=== PATIENT | male | born 1965 | race Hispanic/Latino ===

== ENCOUNTER 2021-12-25 07:19 | Observation (INO) | payer BC ==
[2021-12-24 15:38] LABS: Absolute Lymphocytes (CBC) 2.1 K/uL (0.7-4.9); Hematocrit 38.5 % (39.6-49.0); Lymphocytes % 30.7 % (15.3-44.8); MCV 89.4 fL (80-100); MPV 9.4 fL (7.6-11.3)
[2021-12-24 15:51] LABS: SARS-CoV-2 Antigen Rapid Res Negative (Negative)
[2021-12-24 16:01] LABS: Potassium 4.2 mmol/L (3.5-5.1)
[2021-12-25] MEDS ORDERED: CEFOXITIN SODIUM 1 GM/VIAL ONE (07:47)
[2021-12-25] MEDS ORDERED: Ringers Lactate 1,000 ML IV ONE (07:48)
[2021-12-25] MEDS ORDERED: CEFOXITIN SODIUM 2 GM/VIAL ONE (07:51)
[2021-12-25] MEDS ORDERED: BUPIVACAINE 0.25% PF 30 ML VIAL ONE ×2 (08:21→09:15)
[2021-12-25] MEDS ORDERED: MIDAZOLAM HCL 2 MG/2 ML INJ ONE (09:23)
[2021-12-25] MEDS ORDERED: propofoL 200 MG/20 ML VIAL IV ONE (09:23)
[2021-12-25] MEDS ORDERED: ROCURONIUM 50 MG/5 ML VIAL IV ONE (09:24)
[2021-12-25] MEDS ORDERED: ONDANSETRON 4 MG/2 ML VIAL ONE (09:25)
[2021-12-25] MEDS ORDERED: GLYCOPYRROLATE 0.2 MG/ML SYR ONE (09:26)
[2021-12-25] MEDS ORDERED: NEOSTIGMINE 1 MG/ML -10 ML VIAL ONE (09:26)
[2021-12-25] MEDS ORDERED: FENTANYL CITR 100 MCG/2 ML ONE ×2 (09:27→10:31)
[2021-12-25] MEDS ORDERED: LIDOCAINE 1% MPF 5 ML VIAL ONE (09:29)
[2021-12-25] MEDS ORDERED: ONDANSETRON 4 MG/2 ML VIAL IV PRN (11:28)
[2021-12-25] MEDS ORDERED: HYDROCODONE/APAP 7.5/325 MG TAB PO PRN (11:28)
--- NOTE | 2021-12-25 11:28 | P.OP ---
Preoperative diagnosis: Cholecystitis with choledocholithiasis Postoperative diagnosis: Cholecystitis with choledocholithiasis Primary procedure: Attempted Laparoscopic Cholecystectomy Secondary procedure: Diagnostic Laparoscopy Anesthesia: GETA + Local Estimated blood loss: <30cc Specimen: none Findings: severe adhesions / inflammation to hepatic fossa Complications: None Drain(s): JAK drain (10mm Flat) Transferred to: Recovery Room Condition: Good
[2021-12-25] MEDS: INSULIN -REGULAR HUMAN 50 UNIT/0.5 ML ML SQ SCH ×3 (11:30→21:00)
[2021-12-25] MEDS: HYDROMORPHONE HCL 1 MG/ML INJ IV PRN ×4 (11:50→12:30)
[2021-12-25] MEDS: Ringers Lactate 1,000 ML IV SCH ×2 (12:00→22:00)
--- OUTSIDE RECORDS SUMMARY | 2021-12-25 12:21 | XMS REPORT | Continuity of Care Document ---
:1965 Author Organization [facility] t Address [address] [place] [address] Care Team Providers Name Role Phone Titus Cyr Primary Care Physician SILVIA VANCE Attending Clinician Unavailable Silvia Vance MD Attending Clinician Pob, [facility] Main Attending Clinician Unavailable Doctor Unassigned, [place] Attending Clinician Unavailable Only, Ang Db Test Attending Clinician Unavailable Denisse Jo Attending Clinician DENISSE CUTLER Attending Clinician Unavailable RAFI MATTHEWS Attending Clinician Unavailable Payers Payer Name Policy Type Policy Number Effective Date Expiration Date S saulo [facility] [id number] 2021 00:00:00 Problems This patient has no known problems. Allergies, Adverse Reactions, Alerts Allergy Allergy Status Severity Reaction(s) Onset Inactive Treating Comm ents Source Name Type Date Date Clinician NO KNOWN Drug Active Univers ALLERGIE Class ity of [facility] Social History Social Habit Start Date Stop Date Quantity Comments Source Exposure to 2021-11-24 2021-12-04 Not sure [facility] SARS-CoV-2 (event) 00:00:00 10:14:00 [facility] Sex Assigned At [birth year] [facility] 00:00:00 00:00:00 Medical Branch Smoking Status Start Date Stop Date Source Tobacco smoking consumption [facility] Branch Medications Ordered Filled Start Stop Current Ordering Indication Dosage Frequency Signature Comments Components Source Medication Medication Date Date Medication? Clinician (SIG) Name Name IBUPROFEN Yes w/meals Unive rs 600 MG ORAL 4-26 TID ity of TAB 00:58: [address] IBUPROFEN Yes w/meals Unive rs 600 MG ORAL 4-26 TID ity of TAB 00:58: [address] IBUPROFEN Yes w/meals Unive rs 600 MG ORAL 4-26 TID ity of TAB 00:58: [address] IBUPROFEN Yes w/meals Unive rs 600 MG ORAL 4-26 TID ity of TAB 00:58: [address] Immunizations Ordered Filled Immunization Date Status Comments Sourc e Immunization Name Name SARS-COV-2 COVID-19 2020-07-20 Completed Unive rsity of PFIZER VACCINE 00:00:00 [facility] SARS-COV-2 COVID-19 2020-07-20 Completed Unive rsity of PFIZER VACCINE 00:00:00 [facility] SARS-COV-2 COVID-19 2020-07-20 Completed Unive rsity of PFIZER VACCINE 00:00:00 [facility] SARS-COV-2 COVID-19 2020-07-20 Completed Unive rsity of PFIZER VACCINE 00:00:00 [facility] SARS-COV-2 COVID-19 2020-06-29 Completed Unive rsity of PFIZER VACCINE 00:00:00 [facility] SARS-COV-2 COVID-19 2020-06-29 Completed Unive rsity of PFIZER VACCINE 00:00:00 [facility] SARS-COV-2 COVID-19 2020-06-29 Completed Unive rsity of PFIZER VACCINE 00:00:00 [facility] SARS-COV-2 COVID-19 2020-06-29 Completed Unive rsity of PFIZER VACCINE 00:00:00 [facility] Procedures Procedure Date / Time Performed Performing Clinician Sourc e US ABDOMEN LIMITED 2021-12-11 13:46:00 Silvia Vance [facility] ASSIGNMENT OF BENEFITS 2021-12-11 13:06:55 Doctor Unassigned, No [facility] Encounters Start End Encounter Admission Attending Care Care Encounter Source Date/Time Date/Time Type Type Clinicians Facility Department ID 2021-12-11 2021-12-11 Outpatient R PINKY [facility] [id number] Univers 08:08:30 23:59:00 SILVIA ity [facility] 2021-12-11 2021-12-11 [facility] [id number] Univers 08:00:00 23:59:00 Encounter Silvia MOYER [id number] ity [facility] [id number] [id number] [facility] [address] 2021-12-11 2021-12-11 Butadiene Converter Operator Crystal Atkinson Lab Main [facility] [id number] Univers 09:30:00 09:45:00 [id number] [id number] [id number] Md dical [facility] [address] BUILDING 2021-12-11 2021-12-11 Outpatient R MARTAJAZMÍNPARISH [facility] [id number] Univers 09:30:00 09:30:00 SILVIA [id number] [facility] 2021-12-11 2021-12-11 Orders Doctor SNIDER [id number] Univers 00:00:00 00:00:00 Only Unassigned, ABDOULAYE [id number] ity of [place] [facility] [id number] Branden as [id number] [facility] [address] 2021-04-10 2021-04-10 Outpatient R [facility] [id number] Univers 16:45:00 16:45:00 [id number] ity [facility] 2021-04-10 2021-04-10 Laboratory Only, Ang Db Test [facility] [id number] Univers 16:45:00 16:45:00 Only [place]inf[place], Denisse [facility] [id number] [facility] [id number] Branden as GAIL?BLEA [phone] Md chapin [address] MEDICAL OFFICE BUILDING 2021-04-10 2021-04-10 Outpatient R OMAYRA [facility] [id number] Univers 16:45:00 16:41:14 DENISSE [facility] 2020-07-20 2020-07-20 Outpatient R CASSIE [facility] [id number] Univers 08:35:00 08:45:24 RAFI [facility] 2020-06-29 2020-06-29 [facility] [id number] Univers 09:00:00 09:00:00 RAFI [facility] 2020-03-27 2020-03-27 Outpatient R [facility] [id number] Univers 08:00:00 08:00:00 [facility] Results This patient has no known results.
[2021-12-25] MEDS ORDERED: dexAMETHasone 4 MG/ML VIAL ONE (12:23)
[2021-12-25 12:29] VITALS: O2SAT 96
[2021-12-25] MEDS ORDERED: Levofloxacin 750mg IV 750 MG/150 ML BAG IV SCH (13:00)
--- NOTE | 2021-12-25 13:37 | EKG ---
Test Date: 2021-12-24 Test Time: 14:56:05 Bar Roller: JENARO MEASUREMENT RESULTS: Intervals: Rate: 50 DC: 154 QRSD: 94 QT: 446 QTc: 406 Lorenzo: P: 53 DC: 154 QRS: 34 T: 24 INTERPRETIVE STATEMENTS: Sinus bradycardia Otherwise normal ECG Compared to ECG 12/24/2021 14:55:34 Fusion complex(es) no longer present ST (T wave) deviation no longer present Myocardial infarct finding no longer present Electronically Signed On 12-25-21 13:34:58 CDT by Fredo Abdi
[2021-12-25] MEDS: METRONIDAZOLE 500mg IVPB 500 MG/100 ML BAG IV SCH ×2 (14:51→20:18)
[2021-12-25 16:03] VITALS: BMI 32.5
[2021-12-26] MEDS: METRONIDAZOLE 500mg IVPB 500 MG/100 ML BAG IV SCH (03:59)
--- NOTE | 2021-12-26 05:07 | OP ---
Date of Procedure: 12/25/2021 Surgeon: Severo Peraza MD, Indications: The patient is a 56-year-old gentleman, known to me as an outpatient, who presented wit h right upper quadrant abdominal pain and signs and symptoms of acute calculous cholecystitis. He wa s sent for imaging, which confirmed the fact that he had evidence of choledocholithiasis with multipl e stones in his common bile duct including a single dependent stone up to 1.1 cm. I sent him to Dr. Camilo who ultimately performed ERCP in the preoperative phase as the patient was relatively asymptomat ic as an outpatient with minimal changes in his transaminases and liver function panel and no acute s ymptoms upon this presentation in my clinic. He was seen by Dr. Camilo, had the ERCP as described and ultimately had a sphincterotomy and stent placed. 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 Camilo as he discussed the case with me on the phone. The re cords were not available immediately for my review, but I discussed the case personally with Dr. Camilo who informed me that he was able to place a stent and decompress the system. He states the gallblad modesta did not visualize on his ERCP, but he felt that there was good placement of the stent at the time of the procedure. As such, Dr. Camilo recommended we can proceed with laparoscopic cholecystectomy. As such, I discussed the case with the patient in my clinic and stated that at time he picked up his packet that the risks benefits alternatives of the above-stated procedure included, but not limited t o bleeding, infection, damage to surrounding tissue, need for further operation procedures, injury to bile ducts and intestines, blood clots, stroke, heart attacks and anesthesia related complications a nd other unforeseen complications. We therefore decided to proceed with surgery as discussed. Preoperative Diagnosis: Cholecystitis with history of choledocholithiasis. Postoperative Diagnosis: Cholecystitis with history of choledocholithiasis. Procedures Performed: 1.Attempted laparoscopic cholecystectomy-unsuccessful. 2.Diagnostic laparoscopy. Anesthesia: General endotracheal plus local with 0.25% Marcaine. Estimated Blood Loss: Less than 30 cc. Specimen: None. Findings: The patient had severe intraabdominal adhesions from the omentum to the anterior abdominal wall as well as complete encasement of the gallbladder making visualization and protection of the ga llbladder quite challenging despite using indocyanine green cholangiography in the preoperative perio d. Complications: None. Drains: A 10 mm flat JAK drain was placed in the subhepatic space. Disposition: Patient was transferred to recovery room in good condition. Procedure In Detail: After informed consent was obtained as described above, the patient was prepped and draped in the usual sterile fashion. After adequate anesthesia was achieved, I anesthetized the area superior to the umbilicus. I made an incision and a 5 mm 0-degree optical trocar was introduce d in the abdomen without evidence of any complication. Insufflation was obtained to 15 mmHg at this time. There was no injury to vital structures upon entry into the abdomen. There was significant am ount of inflammatory changes with omental attachments to the anterior abdominal wall. At this point, there was a surprisingly large amount of adhesions between the omentum and the anterior abdominal wa ll from the midportion, intracolonic portion of the omentum to the anterior abdominal wall. Given th e patient's stated no abdominal surgical history, this was quite surprising as there was a significan t amount of intraabdominal scarring for his having a virgin abdomen at this point. I therefore place d 3 additional trocars, 1 in the epigastrium, 1 in the right upper quadrant, and 1 in the right mid a bdomen. All of these were 5 mm trocars placed under direct visualization without incident or complic ation. I then upsized the umbilical trocar to a 12 mm under direct visualization without incident or complication. I then placed the patient in the head up, right side up position. Ratcheted graspers were placed in the patient's abdomen and careful dissection using electrocautery was used to help at tempt to retract the omentum off the anterior surface of the gallbladder. The omentum was actually f irmly attached to the anterior leading edge of the liver in its entirety extending from the falciform ligament medially all the way to the abdominal wall laterally. As I used electrocautery from latera l to medial, hemostasis was achieved throughout this process. I continued to have significant adhesi ons to the omentum to the anterior abdominal wall. I continued to dissect medially attempting to loc ate the gallbladder. The gallbladder appeared to be completely encased and attempts using indocyanin e green cholangiography, as the patient was injected preoperatively, had good visualization with upta ke in the liver; however, no visualization of the bile ducts or the gallbladder was appreciated throu ghout the entire procedure with the indocyanine green. I continued meticulous dissection and nils tirado changed to using a LigaSure device for careful meticulous dissection using the [place] attachmen t to expose the Maame's pouch of the gallbladder. At this point, when the gallbladder appeared to be visualized, there was such a significant inflammatory change and thinness to the wall that it was difficult to appreciate if I was visualizing the gallbladder at this point. The gallbladder appeare d to be completely flat and in the same plane with the liver, giving the appearance of a completely d ecompressed flat gallbladder, which might have an intrahepatic component. As the patient had signifi cant inflammatory changes, I considered doing conversion to an open procedure at this point. I asked 2 of my colleagues, Dr. Joyce and Dr. Hernandes to come in and take a peek. They did not scrub for th e procedure. I simply had them financial specialist the room while we discussed the case as well and gave them v isualization. They both agree that we had essentially 2 options. My options that I considered were converting to an open procedure or opting to place a drain and refer the patient to a hepatobiliary s pecialist as the patient did have retained stones in the common bile duct per Dr. Camilo's statement. I opted to place the drain and closed the patient rather than to continue to proceed as I was concern ed that if the patient did have difficulty in the future getting his stone out via ERCP, he might nee d a common duct exploration and having an undisturbed area might make his long-term surgical morbidit y lower rather than potentially introducing additional complications should the dissection continued to be quite challenging. Therefore, I opted to leave the gallbladder intact. There was no injury ma de to the gallbladder appreciated throughout the procedure. I palpated the area and once again used indocyanine green to attempt to visualize any leakage of bile, which was not appreciated throughout t he procedure. However, as stated earlier, the gallbladder had no visualized uptake of the indocyanin e green and as such a bile leak would not be appreciated. Therefore, I left the 10 mm flat JAK drain in the right mid abdominal trocar and placed it in the hepatic fossa in this area. I opted to place the patient back in neutral position, washed out and irrigated the area. Good hemostasis was achieve d without any additional hemostatic. At this point, I then closed the umbilical trocar site using a Alexis-Meng suture passer with a 0 Vicryl in interrupted fashion with good approximation of tissu es and decompressed the abdomen under direct visualization without evidence of complication. All ski n incisions were then copiously irrigated. The drain was secured to the abdominal wall using a 2-0 n ylon suture and all skin incisions were closed with a 4-0 Monocryl in a running fashion and Dermabond was placed over the top. The patient tolerated the procedure well without complication at this poin t, and was transferred to PACU in good condition. All counts were correct at the end of the case. I have spoken to my colleague, Dr. Julien Gonzales, a hepatobiliary specialist and discussed the case. He agrees to see the patient either in transfer or as an outpatient, if the patient continues to do well. I anticipate the patient will be an outpatient as we did not do any significant dissection and as such, I will likely send him home after a short observation period and he will follow up with Dr. Gonzales for definitive surgery. ANDREW/DUSTIN Voice ID: [id number] Report ID: [id number]
[2021-12-26 06:12] LABS: Absolute Lymphocytes (CBC) 1.4 K/uL (0.7-4.9); Lymphocytes % 13.1 % (15.3-44.8); MCV 90.6 fL (80-100); MPV 9.8 fL (7.6-11.3); RBC Red Blood Cell Count 4.19 M/uL (4.33-5.43)
[2021-12-26 06:29] LABS: Albumin 3.5 g/dL (3.4-5.0); Bilirubin Total 0.9 mg/dL (0.2-1.0); Potassium 4.1 mmol/L (3.5-5.1); Protein, Total 6.7 g/dL (6.4-8.2)
[2021-12-26] MEDS: INSULIN -REGULAR HUMAN 50 UNIT/0.5 ML ML SQ SCH (07:30)
[2021-12-26 09:07] VITALS: BP 127/66; TEMP 98.6
--- NOTE | 2021-12-31 06:48 | EKG ---
Test Date: 2021-12-24 Test Time: 14:55:34 In Home Tutor: JENARO MEASUREMENT RESULTS: Intervals: Rate: 51 MS: 162 QRSD: 90 QT: 428 QTc: 394 [place]: P: 14 MS: 162 QRS: 35 T: -7 INTERPRETIVE STATEMENTS: Sinus bradycardia with fusion complexes ST elevation, consider lateral injury or acute infarct ACUTE [place] Abnormal ECG No previous ECG available for comparison Electronically Signed On 12-31-21 06:33:25 CDT by David Jalloh
== END 2021-12-26 11:22 | disposition home or self-care (01) ==
LOC: OR 07:19 → 4TH 12:05
PROVIDERS: ADMIT Surgery; ATTEND Surgery
PROC: 0FJ44ZZ Inspection of Gallbladder, Percutaneous Endoscopic Approach (ICD-10-PCS; principal; 2021-12-25 10:00)
DX: K80.10 Calculus of gallbladder with chronic cholecystitis without obstruction (principal); K66.0 Peritoneal adhesions (postprocedural) (postinfection); Z20.822 Contact with and (suspected) exposure to COVID-19
CPT/HCPCS: 49320; 93005 ×2; 85025 ×2; 80048; 36415 ×2; 82947 ×4; 80053; 94010; 94760 ×3; 87811; G0379; J2704; J1100; J2710; J2001; J2250; J3010 ×2; J1170 ×2; G0378 ×3; J7120 ×3; J0694; J2405 ×2